=== PATIENT | male | born 1990 | race African-American/Black ===

== ENCOUNTER 2017-07-02 10:59 | Emergency (ER) | payer SELFPAY ==
[~2017-07-02] VITALS: Ht 170.2 cm; Wt 72.6 kg
[2017-07-02] MEDS ORDERED: TOPI100T8 PO (11:19)
[2017-07-02] MEDS ORDERED: TOPIRAMATE 100 MG TABLET. PO STA (11:20)
--- NOTE | 2017-07-02 11:47 | PHYS DOC ---
Past Medical History Past Medical History: Seizure, Other Additional Past Medical Histor: BLIND IN L EYE Past Surgical History: No Surgical History Alcohol Use: None Drug Use: None Adult General Chief Complaint Chief Complaint: SEIZURE HPI HPI Patient is a 27 year old male who presents with complaint of "feeling like I'm about to have a seizure." Patient states he has history of seizures. The patient states that he takes Topamax for treatment of his seizures. Patient does not follow with a neurologist at this time but states that he does follow at a primary care clinic to have his Topamax refill. Patient states that he has been out of this medication for approximately 1-1/2 weeks. Patient states that he starts to feel twitching on the right side of his body prior to having seizures. The patient's seizures are described as somewhat complex as the patient states that he occasionally has an episode where he completely loses consciousness, while at other times he states that it primarily causes twitching on the right side of his body. The patient brought his prescription bottle which noted that the patient should be taken 100 mg of Topamax daily, however he states that he uses this medication "as needed." Patient denies any recent illnesses, fever, nausea, chest pain, or abdominal pain. Review of Systems Review of Systems Constitutional: Denies fever or chills [] Eyes: Denies change in visual acuity, redness, or eye pain [] HENT: Denies nasal congestion or sore throat [] Respiratory: Denies cough or shortness of breath [] Cardiovascular: Denies chest pain or edema[] GI: Denies abdominal pain, nausea, vomiting, bloody stools or diarrhea [] : Denies dysuria or hematuria [] Musculoskeletal: Denies back pain or joint pain [] Integument: Denies rash or skin lesions [] Neurologic: Denies headache, focal weakness or sensory changes [] Current Medications Current Medications Current Medications Medications (Trade) Dose Ordered Sig/Sukhwinder Start Time Stop Time Status Last Admin Dose Admin Topiramate (Topamax) 100 mg 1X STAT 07/02/17 11:20 07/02/17 11:27 DC 07/02/17 11:30 100 MG Allergies Allergies Allergies Coded Allergies Type Severity Reaction Last Updated Verified No Known Drug Allergies 07/02/17 No Physical Exam Physical Exam Constitutional: Well developed, well nourished, no acute distress, non-toxic appearance. [] HENT: Normocephalic, atraumatic, bilateral external ears normal, oropharynx moist, no oral exudates, nose normal. [] Eyes: Left eye nonviable, right pupil 3 mm and reactive to light, EOMI, conjunctiva normal, no discharge. [] Neck: Normal range of motion, no tenderness, supple, no stridor. [] Cardiovascular:Heart rate regular rhythm, no murmur [] Lungs & Thorax: Bilateral breath sounds clear to auscultation [] Abdomen: Bowel sounds normal, soft, no tenderness, no masses, no pulsatile masses. [] Skin: Warm, dry, no erythema, no rash. [] Back: No tenderness, no CVA tenderness. [] Extremities: No tenderness, no cyanosis, no clubbing, ROM intact, no edema. [] Neurologic: Alert and oriented X 3, normal motor function, normal sensory function, no focal deficits noted. [] Current Patient Data Vital Signs Vital Signs Date Time Temp Pulse Resp B/P (MAP) Pulse Ox O2 Delivery O2 Flow Rate FiO2 07/02/17 11:07 98.5 91 18 153/85 (107) 95 Room Air 98.5 Lab Values Laboratory Tests Test 07/02/17 11:20 07/02/17 12:35 White Blood Count 6.9 x10^3/uL (4.0-11.0) Red Blood Count 5.40 x10^6/uL (4.30-5.70) Hemoglobin 16.2 g/dL (13.0-17.5) Hematocrit 46.7 % (39.0-53.0) Mean Corpuscular Volume 87 fL (79-100) Mean Corpuscular Hemoglobin 30 pg (25-35) Mean Corpuscular Hemoglobin Concent 35 g/dL (31-37) Red Cell Distribution Width 13.4 % (11.5-14.5) Platelet Count 266 x10^3/uL (140-400) Neutrophils (%) (Auto) 65 % (31-73) Lymphocytes (%) (Auto) 27 % (24-48) Monocytes (%) (Auto) 6 % (0-9) Eosinophils (%) (Auto) 2 % (0-3) Basophils (%) (Auto) 1 % (0-3) Neutrophils # (Auto) 4.5 x10^3uL (1.8-7.7) Lymphocytes # (Auto) 1.9 x10^3/uL (1.0-4.8) Monocytes # (Auto) 0.4 x10^3/uL (0.0-1.1) Eosinophils # (Auto) 0.1 x10^3/uL (0.0-0.7) Basophils # (Auto) 0.0 x10^3/uL (0.0-0.2) Sodium Level 141 mmol/L (136-145) Potassium Level 4.0 mmol/L (3.5-5.1) Chloride Level 105 mmol/L (98-107) Carbon Dioxide Level 25 mmol/L (21-32) Anion Gap 11 (6-14) Blood Urea Nitrogen 12 mg/dL (8-26) Creatinine 0.9 mg/dL (0.7-1.3) Estimated GFR (Cockcroft-Gault) 120.7 Glucose Level 98 mg/dL (70-99) Calcium Level 9.6 mg/dL (8.5-10.1) Magnesium Level 2.1 mg/dL (1.8-2.4) Urine Opiates Screen Neg (NEG) Urine Methadone Screen Neg (NEG) Urine Barbiturates Neg (NEG) Urine Phencyclidine Screen Neg (NEG) Urine Amphetamine/Methamphetamine Neg (NEG) Urine Benzodiazepines Screen Neg (NEG) Urine Cocaine Screen Neg (NEG) Urine Cannabinoids Screen Neg (NEG) Urine Ethyl Alcohol Neg (NEG) Laboratory Tests 07/02/17 11:20 Laboratory Tests 07/02/17 11:20 EKG EKG Not performed[] Radiology/Procedures Radiology/Procedures Not performed[] Course & Med Decision Making Course & Med Decision Making Pertinent Labs and Imaging studies reviewed. (See chart for details) Patient was given Topamax in the emergency department and observed over 2 hours with no noted seizure activity. Patient provided with a prescription for Topamax to continue. Patient referred to Dr. Mcnally of neurology for follow- up in one to 2 weeks for reevaluation. Advised return emergency department for any worsening symptoms. Patient voiced understanding and in agreement with treatment plan. Dragon Disclaimer Dragon Disclaimer This electronic medical record was generated, in whole or in part, using a voice recognition dictation system. Departure Departure Impression: Primary Impression: Seizure disorder Additional Impression: Medication refill Disposition: HOME, SELF-CARE Condition: STABLE Referrals: NO PCP (PCP) Patient Instructions: Seizure, Adult Additional Instructions: Follow-up with Dr. Mcnally of neurology in 1-2 weeks for reevaluation. Return to emergency department for any worsening symptoms. Scripts Topiramate (TOPAMAX) 100 Mg Tablet 1 TAB PO QHS, #30 TAB 0 Refills Prov: MARKY NOWAK MD 07/02/17 Problem Qualifiers MARKY NOWAK MD Jul 02, 2017 11:47
[2017-07-02 12:24] LABS: BASO % 1 % (0-3); EOS % 2 % (0-3); HEMATOCRIT 46.7 % (39.0-53.0); HEMOGLOBIN 16.2 g/dL (13.0-17.5); LYMPH # 1.9 x10^3/uL (1.0-4.8); LYMPH % 27 % (24-48); MEAN CORPUSCULAR HEMOGLOBIN 30 pg (25-35); MEAN CORPUSCULAR HGB CONC 35 g/dL (31-37); MEAN CORPUSCULAR VOLUME 87 fL (79-100); MONO % 6 % (0-9); NEUT % 65 % (31-73); PLATELET COUNT 266 x10^3/uL (140-400); RED CELL DISTRIBUTION WIDTH 13.4 % (11.5-14.5); WHITE BLOOD COUNT 6.9 x10^3/uL (4.0-11.0)
[2017-07-02 12:37] LABS: CALCIUM 9.6 mg/dL (8.5-10.1); CREATININE 0.9 mg/dL (0.7-1.3); GFR 120.7
[2017-07-02 12:42] LABS: MAGNESIUM 2.1 mg/dL (1.8-2.4)
[2017-07-02 12:49] LABS: BARBITURATES NEG (NEG); BENZODIAZEPINES NEG (NEG); CANNABINOIDS NEG (NEG); COCAINE NEG (NEG); METHADONE NEG (NEG); OPIATES NEG (NEG); PHENCYCLIDINE NEG (NEG)
[2017-07-02] MEDS ORDERED: TOPI100T42 PO (13:05)
[2017-07-02 13:08] VITALS: BP 115/75
== END 2017-07-02 13:10 | disposition home or self-care (01) ==
LOC: ER 10:59
DX: G40.909 Epilepsy, unspecified, not intractable, without status epilepticus (principal)
CPT/HCPCS: 36415; 80048; 80307; 83735; 85025; 99284; G0479